=== PATIENT | female | born 1970 | race American Indian/Alaskan Native ===

== ENCOUNTER 2020-01-06 19:20 | Emergency (ER) | payer SELFPAY ==
[2020-01-06] MEDS ORDERED: KETOROLAC 30 MG/1 ML INJ IM ONE (20:52)
--- NOTE | 2020-01-06 20:56 | Emergency Department Report ---
ED Neck Pain/Injury HPI - General Chief Complaint: Neck Pain/Injury Stated Complaint: NECK/BACK SPASM PAIN Mode of arrival: Ambulatory Limitations: No Limitations - History of Present Illness Initial Comments: 49-year-old -Honduran female presents to the emergency room for left neck pain and muscle cramps since yesterday at about 1700. Patient states that the narcotics that she is taking is not helping. Patient reports she is tried using heat ice vjih-meq-gyymdjf lidocaine spray with no relief. Patient denies any injuries. Patient does report chronic neck pain with a herniated disc. Patient denies any diabetes no kidney disease. MD Complaint: neck pain Onset/Timin -: days(s) Radiation: left lateral Severity scale (0 -10): 10 Quality: stabbing, aching, other (Muscle cramp) Consistency: intermittent Improves With: none Worsens With: movement of neck, other (Lying on the left side) Associated Symptoms: none Treatments Prior to Arrival: cold therapy, heat therapy - Related Data Previous Rx's Medication Instructions Recorded Last Taken Type Ibuprofen [Motrin 800 MG tab] 800 mg PO Q8HR PRN #30 tablet 01/06/20 Unknown Rx tiZANidine [Zanaflex 4mg TAB] 4 mg PO Q6H PRN #30 tablet 01/06/20 Unknown Rx Allergies Allergy/AdvReac Type Severity Reaction Status Date / Time No Known Allergies Allergy Unverified 01/06/20 19:46 ED Review of Systems ROS: Stated complaint: NECK/BACK SPASM PAIN Other details as noted in HPI Comment: All other systems reviewed and negative ED Past Medical Hx - Past Medical History Previous Medical History?: Yes Hx Hypertension: Yes Additional medical history: Chronic Neck Pain. Chronic Back pain (Herniated disc). Morbid Obesity - Surgical History Past Surgical History?: Yes Additional Surgical History: - Social History Smoking Status: Never Smoker Substance Use Type: None - Medications Home Medications: Home Medications Medication Instructions Recorded Confirmed Last Taken Type Ibuprofen [Motrin 800 MG tab] 800 mg PO Q8HR PRN #30 tablet 01/06/20 Unknown Rx tiZANidine [Zanaflex 4mg TAB] 4 mg PO Q6H PRN #30 tablet 01/06/20 Unknown Rx ED Physical Exam - General Limitations: No Limitations General appearance: alert, in distress - Head Head exam: Present: atraumatic, normocephalic - Eye Eye exam: Present: normal appearance - ENT ENT exam: Present: mucous membranes moist - Neck Neck exam: Present: tenderness (Left side with trapezius tenderness) - Expanded Upper Extremity Exam Left Shoulder Exam: Present: full ROM, tenderness, tenderness over AC joint Upper Arm exam: Present: normal inspection, full ROM Elbow exam: Present: normal inspection, full ROM Forearm Wrist exam: Present: normal inspection, full ROM Hand Wrist exam: Present: normal inspection, full ROM Vascular: Present: vascular compromise - Neurological Exam Neurological exam: Present: alert, oriented X3 - Psychiatric Psychiatric exam: Present: normal affect, normal mood - Skin Skin exam: Present: warm, dry, intact, normal color. Absent: rash ED Course Vital Signs 01/06/20 19:49 Temperature 99.2 F Pulse Rate 88 Respiratory 18 Rate Blood Pressure 200/100 [Left] O2 Sat by Pulse 99 Oximetry ED Medical Decision Making - Medical Decision Making 49-year-old -Honduran female presents to the emergency room for left neck pain and muscle cramps since yesterday at about 1700. Patient states that the narcotics that she is taking is not helping. Patient reports she is tried using heat ice gybh-nnk-dopgvlh lidocaine spray with no relief. Patient denies any injuries. Patient does report chronic neck pain with a herniated disc. Patient denies any diabetes no kidney disease. Patient will be given a Toradol injection of 30 mg for pain management. I discussed with patient that I will try her on Zanaflex muscle relaxant and ibuprofen 800 mg every 6-8 hours as discussed the patient to be sure to drink and eat prior to taking medication. Patient verbalized understanding. Critical care attestation.: If time is entered above; I have spent that time in minutes in the direct care of this critically ill patient, excluding procedure time. ED Disposition Clinical Impression: Muscle spasms of neck, Chronic neck pain Disposition: TO HOME OR SELFCARE Is pt being admited?: No Does the pt Need Aspirin: No Condition: Stable Instructions: Cervical Radiculopathy (ED), Muscle Spasm (ED) Additional Instructions: Please take medications as prescribed. Please increase your water intake be sure to eat prior to taking medication. Follow-up with your primary care provider. I have also listed a neurologist that she can follow-up as well. Prescriptions: Ibuprofen [Motrin 800 MG tab] 800 mg PO Q8HR PRN #30 tablet PRN Reason: Pain , Severe (7-10) tiZANidine [Zanaflex 4mg TAB] 4 mg PO Q6H PRN #30 tablet PRN Reason: Muscle Spasm Referrals: PRIMARY CARE,MD [Primary Care Provider] - 3-5 Days CECILIA BAILEY II, MD [Staff Physician] - 3-5 Days
[2020-01-06 21:55] VITALS: BP 157/94
== END 2020-01-06 21:55 | disposition home or self-care (01) ==
LOC: ED 19:20
DX: M54.2 Cervicalgia (principal); M62.838 Other muscle spasm; G89.29 Other chronic pain; I10 Essential (primary) hypertension; E66.01 Morbid (severe) obesity due to excess calories; Z79.899 Other long term (current) drug therapy; Z98.890 Other specified postprocedural states; Z68.42 Body mass index [BMI] 45.0-49.9, adult
CPT/HCPCS: 96372; 99282; J1885

== ENCOUNTER 2021-01-06 08:11 | Observation (INO) | payer MEDICAID ==
[2021-01-06] MEDS ORDERED: amLODIPine 5 MG TAB PO ONE (09:34)
[2021-01-06] MEDS ORDERED: NITROGLYCERIN 0.4 MG TAB SUBL SL PRN (09:35)
--- NOTE | 2021-01-06 09:35 | Emergency Department Report ---
ED General Adult HPI - General Chief complaint: Dyspnea/Respdistress Stated complaint: SOB/ANXIETY PUI?: Yes Time Seen by Provider: 01/06/21 08:50 Source: patient, RN notes reviewed Mode of arrival: Ambulatory Limitations: No Limitations - History of Present Illness Initial comments: The patient was evaluated in the emergency department for symptoms described in the history of present illness. He/she was evaluated in the context of the global COVID-19 pandemic, which necessitated consideration that the patient might be at risk for infection with the virus that causes COVID-19. Institutional protocols and algorithms that pertain to the evaluation of patients at risk for COVID-19 are in a state of rapid change based on i nformation released by regulatory bodies including the CDC and federal and state organizations. These policies and algorithms were followed during the patient's care in the emergency department. Please note that these policies, procedures and recommendations changed on a rapid basis. The patient is a 50-year-old female. She is not known to myself previously. Her primary care doctor is in [facility]. Her past medical history includes hypertension, difficult to control, and she reports that she is currently on verapamil, metoprolol, and hydralazine. She is not vaccinated against COVID-19, and also has a past history of morbid obesity, with a BMI of 48. The patient presents to the ER today with complaint of shortness of breath, chest pressure, and anxiety. The patient has been having the symptoms for about 2 weeks. The chest pressure is central, and does not radiate to the back, arms or neck. The patient denies vomiting and diaphoresis. She denies travel, surgery, immobilization, leg pain and leg swelling, oral contraceptive use, , and DVT and pulmonary embolism risk factors. Shortness of breath and chest tightness or not exertional. The patient has never had a stress test. The patient endorses many symptoms of obstructive sleep apnea, including snoring at night, loud breathing at night, sensation and feeling of incomplete and unrestful sleep. She also reports that bed partner does report chronic snoring and apnea at night. The patient has not had a sleep study. The patient has not taken aspirin recently. She denies travel, surgery, immobilization, leg pain and leg swelling, and she denies tobacco use. There is no family history of ischemic heart disease, DVT, PE that she is aware of. The patient is not COVID-19 vaccinated. The patient reports a recent negative COVID-19 test. The patient denies known Covid exposure. -: Gradual, days(s) Location: chest Radiation: non-radiation Quality: aching Consistency: intermittent Improves with: none Worsens with: none - Related Data Home Medications Medication Instructions Recorded Confirmed Last Taken Metoprolol 01/06/21 Unknown Verapamil ER PM 01/06/21 Unknown Verapamil HCl [Verapamil] 40 mg PO DAILY 01/06/21 01/06/21 Unknown hydrALAZINE 10 mg PO DAILY 01/06/21 01/06/21 Unknown Previous Rx's Medication Instructions Recorded Last Taken Type Ibuprofen [Motrin 800 MG tab] 800 mg PO Q8HR PRN #30 tablet 01/06/20 Unknown Rx tiZANidine [Zanaflex 4mg TAB] 4 mg PO Q6H PRN #30 tablet 01/06/20 Unknown Rx Allergies Allergy/AdvReac Type Severity Reaction Status Date / Time No Known Allergies Allergy Verified 01/06/21 08:20 ED Review of Systems ROS: Stated complaint: SOB/ANXIETY Other details as noted in HPI Constitutional: malaise, weakness, other (Denies loss of taste and smell). denies: fever Eyes: denies: eye discharge ENT: denies: congestion Respiratory: orthopnea, shortness of breath, SOB with exertion, SOB at rest. denies: cough Cardiovascular: chest pain, dyspnea on exertion Gastrointestinal: denies: nausea, vomiting, hematemesis, melena, hematochezia Genitourinary: denies: dysuria Musculoskeletal: denies: back pain Neurological: weakness Psychiatric: anxiety ED Past Medical Hx - Past Medical History Hx Hypertension: Yes Additional medical history: Chronic Neck Pain. Chronic Back pain (Herniated disc). Morbid Obesity - Surgical History Additional Surgical History: - Social History Smoking Status: Never Smoker Substance Use Type: None - Medications Home Medications: Home Medications Medication Instructions Recorded Confirmed Last Taken Type Ibuprofen [Motrin 800 MG tab] 800 mg PO Q8HR PRN #30 tablet 01/06/20 Unknown Rx tiZANidine [Zanaflex 4mg TAB] 4 mg PO Q6H PRN #30 tablet 01/06/20 Unknown Rx Metoprolol 01/06/21 Unknown History Verapamil ER PM 01/06/21 Unknown History Verapamil HCl [Verapamil] 40 mg PO DAILY 01/06/21 01/06/21 Unknown History hydrALAZINE 10 mg PO DAILY 01/06/21 01/06/21 Unknown History ED Physical Exam - General Limitations: No Limitations General appearance: alert, anxious, in distress, obese - Head Head exam: Present: atraumatic, normocephalic - Eye Eye exam: Present: normal appearance, EOMI. Absent: nystagmus - ENT ENT exam: Present: normal exam, normal orophraynx, mucous membranes moist, normal external ear exam - Neck Neck exam: Present: normal inspection, full ROM. Absent: tenderness, meningismus - Respiratory Respiratory exam: Present: other (Pulmonary auscultation not performed secondary to lack of disposable stethoscope). Absent: stridor - Cardiovascular Cardiovascular Exam: Present: regular rate (Seen on EKG. Cardiac auscultation not performed secondary to lack of disposable stethoscope), normal rhythm - GI/Abdominal GI/Abdominal exam: Present: soft. Absent: distended, tenderness, guarding, rebound, rigid, pulsatile mass - Extremities Exam Extremities exam: Present: normal inspection, full ROM, other (2+ pulses noted in the bilateral upper and lower extremities. There is no palpable cord. negative Homans sign. Muscular compartments are soft. The pelvis is stable.). Absent: pedal edema, calf tenderness - Back Exam Back exam: Present: normal inspection. Absent: tenderness, CVA tenderness (R), CVA tenderness (L), paraspinal tenderness, vertebral tenderness - Neurological Exam Neurological exam: Present: alert, oriented X3, normal gait, other (No facial droop. Tongue midline. Extraocular movements intact bilaterally. Facial sensation intact to light touch in V1, V2, V3 distribution bilaterally. 5 and a 5 strength in 4 extremities. Sensation intact to light touch in 4 extremities.). Absent: motor sensory deficit - Psychiatric Psychiatric exam: Present: anxious - Skin Skin exam: Present: warm, dry, intact, normal color. Absent: rash ED Course Vital Signs 01/06/21 01/06/21 01/06/21 08:27 08:28 10:40 Temperature 98.9 F Pulse Rate 103 H 95 H Respiratory 20 Rate Blood Pressure 260/132 240/126 Blood Pressure [Left] O2 Sat by Pulse 95 Oximetry 01/06/21 01/06/21 01/06/21 10:41 10:48 12:52 Temperature Pulse Rate 88 88 Respiratory 19 Rate Blood Pressure 240/126 215/119 Blood Pressure [Left] O2 Sat by Pulse 96 98 Oximetry 01/06/21 01/06/21 01/06/21 12:54 13:01 13:15 Temperature Pulse Rate 104 H Respiratory 16 Rate Blood Pressure 203/101 204/102 Blood Pressure 203/101 [Left] O2 Sat by Pulse 97 98 99 Oximetry 01/06/21 01/06/21 01/06/21 13:26 13:31 13:57 Temperature Pulse Rate 105 H Respiratory Rate Blood Pressure 212/108 212/108 192/105 Blood Pressure [Left] O2 Sat by Pulse 98 98 Oximetry 01/06/21 01/06/21 01/06/21 14:01 14:15 14:25 Temperature Pulse Rate 134 H Respiratory 16 Rate Blood Pressure 192/105 192/105 Blood Pressure 192/105 [Left] O2 Sat by Pulse 99 98 99 Oximetry 01/06/21 14:26 Temperature Pulse Rate Respiratory 14 Rate Blood Pressure Blood Pressure [Left] O2 Sat by Pulse 99 Oximetry - Reevaluation(s) Reevaluation #1: 01/06/21 10:06 Differential diagnosis, including but not limited to: Hypertensive emergency, hypertensive cardiomyopathy, flash pulmonary edema, pneumonia, acute coronary syndrome, pulmonary embolism, anxiety, obstructive sleep apnea, COVID-19 01/06/21 10:06 Assessment and plan: 50-year-old female, with morbid obesity, probable undiagnosed obstructive sleep apnea, presenting with chest pressure, shortness of breath, anxiety, and marked hypertension. I suspect that the patient is experiencing this sequela of her uncontrolled hypertension, inadequately and incompletely managed and undiagnosed obstructive sleep apnea The patient is not hypoxic at this time, she denies loss of taste and smell. COVID-19 is less likely. We will treat her symptoms, obtain appropriate laboratory studies, x-ray of the chest, and reassess after initial data points the patient is not currently tachycardic, tachypneic or hypoxic. She denies DVT and pulmonary embolism risk factors, she is PERC negative, and low risk by Wells criteria. The patient is moderate risk for major adverse cardiac event as per heart score, so we have recommended admission to the medical service for blood pressure control, and cardiac risk ratification. I discussed this with the patient. She is agreeable to this plan of care. Reassess after acquisition of laboratory studies and x-ray the chest The patient has equal pulses in the upper and lower extremities. Her symptoms have been going on for a few weeks. I think aortic disease is therefore unlikely. The patient is not hypoxic, denies diarrhea, denies loss of taste and smell. I think COVID-19 is unlikely for that reason. 01/06/21 10:14 01/06/21 14:24 The patient is reevaluated multiple times. After multiple rounds of hydralazine, blood pressure is now 190 systolic. Patient very anxious about CT scan, I went back to her bedside, and discussed details and necessity of CT angiogram. She is in agreement with acquisition of CT scan. She felt much improved after midazolam. Hospital physician, Dr. Jaqui Syed to admit to IMS 01/06/21 15:45 CT scan chest negative for acute findings. Cardiomegaly noted. This is likely secondary to hypertension and presumed obstructive sleep apnea. ED Medical Decision Making - Lab Data Result diagrams: 01/06/21 09:51 01/06/21 09:51 Vital Signs 01/06/21 01/06/21 08:27 08:28 Temperature 98.9 F Pulse Rate 103 H Respiratory 20 Rate Blood Pressure 260/132 O2 Sat by Pulse 95 Oximetry Lab Results 01/06/21 01/06/21 01/06/21 Range/Units 09:51 09:51 09:51 WBC 8.6 (4.5-11.0) K/mm3 RBC 4.21 (3.65-5.03) M/mm3 Hgb 12.1 (10.1-14.3) gm/dl Hct 34.8 (30.3-42.9) % MCV 83 (79-97) fl MCH 29 (28-32) pg MCHC 35 H (30-34) % RDW 16.8 H (13.2-15.2) % Plt Count 244 (140-440) K/mm3 Lymph % (Auto) 29.2 (13.4-35.0) % Lamar % (Auto) 8.1 H (0.0-7.3) % Eos % (Auto) 0.3 (0.0-4.3) % Baso % (Auto) 0.5 (0.0-1.8) % Lymph # (Auto) 2.5 (1.2-5.4) K/mm3 Lamar # (Auto) 0.7 (0.0-0.8) K/mm3 Eos # (Auto) 0.0 (0.0-0.4) K/mm3 Baso # (Auto) 0.0 (0.0-0.1) K/mm3 Seg Neutrophils % 61.9 (40.0-70.0) % Seg Neutrophils # 5.3 (1.8-7.7) K/mm3 PT 14.2 (12.2-14.9) Sec. INR 1.05 (0.87-1.13) APTT 29.3 (24.2-36.6) Sec. D-Dimer 1439.13 H (0-234) ng/mlDDU Sodium 141 (137-145) mmol/L Potassium 4.1 (3.6-5.0) mmol/L Chloride 103.1 (98-107) mmol/L Carbon Dioxide 24 (22-30) mmol/L Anion Gap 18 mmol/L BUN 8 (7-17) mg/dL Creatinine 1.1 (0.6-1.2) mg/dL Estimated GFR > 60 ml/min BUN/Creatinine Ratio 7 % Glucose 106 H (65-100) mg/dL Calcium 8.9 (8.4-10.2) mg/dL Magnesium 1.70 (1.7-2.3) mg/dL Total Bilirubin 0.40 (0.1-1.2) mg/dL AST 18 (5-40) units/L ALT 11 (7-56) units/L Alkaline Phosphatase 78 (35-129) units/L Total Creatine Kinase 145 H (30-135) units/L Troponin T < 0.010 (0.00-0.029) ng/mL NT-Pro-B Natriuret Pep 379.4 (0-450) pg/mL Total Protein 8.0 (6.3-8.2) g/dL Albumin 3.7 L (3.9-5) g/dL Albumin/Globulin Ratio 0.9 % TSH (0.270-4.200) mlU/mL HCG, Quant (0-4) mIU/mL 01/06/21 01/06/21 Range/Units 09:51 09:51 WBC (4.5-11.0) K/mm3 RBC (3.65-5.03) M/mm3 Hgb (10.1-14.3) gm/dl Hct (30.3-42.9) % MCV (79-97) fl MCH (28-32) pg MCHC (30-34) % RDW (13.2-15.2) % Plt Count (140-440) K/mm3 Lymph % (Auto) (13.4-35.0) % Lamar % (Auto) (0.0-7.3) % Eos % (Auto) (0.0-4.3) % Baso % (Auto) (0.0-1.8) % Lymph # (Auto) (1.2-5.4) K/mm3 Lamar # (Auto) (0.0-0.8) K/mm3 Eos # (Auto) (0.0-0.4) K/mm3 Baso # (Auto) (0.0-0.1) K/mm3 Seg Neutrophils % (40.0-70.0) % Seg Neutrophils # (1.8-7.7) K/mm3 PT (12.2-14.9) Sec. INR (0.87-1.13) APTT (24.2-36.6) Sec. D-Dimer (0-234) ng/mlDDU Sodium (137-145) mmol/L Potassium (3.6-5.0) mmol/L Chloride (98-107) mmol/L Carbon Dioxide (22-30) mmol/L Anion Gap mmol/L BUN (7-17) mg/dL Creatinine (0.6-1.2) mg/dL Estimated GFR ml/min BUN/Creatinine Ratio % Glucose (65-100) mg/dL Calcium (8.4-10.2) mg/dL Magnesium (1.7-2.3) mg/dL Total Bilirubin (0.1-1.2) mg/dL AST (5-40) units/L ALT (7-56) units/L Alkaline Phosphatase (35-129) units/L Total Creatine Kinase (30-135) units/L Troponin T (0.00-0.029) ng/mL NT-Pro-B Natriuret Pep (0-450) pg/mL Total Protein (6.3-8.2) g/dL Albumin (3.9-5) g/dL Albumin/Globulin Ratio % TSH 2.090 (0.270-4.200) mlU/mL HCG, Quant < 2 (0-4) mIU/mL Vital Signs 01/06/21 01/06/21 01/06/21 08:27 08:28 10:40 Temperature 98.9 F Pulse Rate 103 H 95 H Respiratory 20 Rate Blood Pressure 260/132 240/126 O2 Sat by Pulse 95 Oximetry 01/06/21 01/06/21 10:41 10:48 Temperature Pulse Rate 88 88 Respiratory 19 Rate Blood Pressure 240/126 215/119 O2 Sat by Pulse 96 Oximetry - EKG Data -: EKG Interpreted by Dc EKG shows normal: sinus rhythm Rate: normal - EKG Data 01/06/21 10:10 EKG #1 is interpreted at 08: 43 Sinus rhythm, 78 bpm. Borderline leftward axis deviation, motion artifact, atrial enlargement, poor R wave progression, high left ventricular voltage. This is an abnormal EKG. This is not a STEMI. No priors available for comparison - Radiology Data Radiology results: pending, report reviewed, image reviewed CHEST 1 VIEW 01/06/2021 11:31 AM INDICATION / CLINICAL INFORMATION: Chest pain and dyspnea. COMPARISON: None available. FINDINGS: SUPPORT DEVICES: None. HEART / MEDIASTINUM: There is borderline cardiomegaly with a left ventricular configuration. Pulmonary vasculature is normal. There is mild aortic tortuosity without aneurysm. LUNGS / PLEURA: No significant pulmonary or pleural abnormality. No pneumothorax. ADDITIONAL FINDINGS: No significant additional findings. IMPRESSION: Borderline cardiomegaly. No acute pulmonary disease. Signer Name: Rory Maier MD Signed: 01/06/2021 10:35 AM Workstation Name: [facility]ENTERMont[facility] [place] [address] Cat Scan Report Signed Patient: RADHA BROWN MR#: [id number] : 1970 Acct:[id number] Age/Sex: 50 / F ADM Date: 01/06/21 Loc: 3A [id number]: JOSE SYED MD Ordering Physician: JARED COLLINS MD Date of Service: 01/06/21 Procedure(s): CT angio chest Accession Number(s): [id number] cc: JARED COLLINS MD CTA CHEST WITH CONTRAST INDICATION / CLINICAL INFORMATION: cp, dyspnea, htn, pe protocol. TECHNIQUE: Axial CT images were obtained through the chest after injection of IV contrast. 3 plane MIP and/or 3D reconstructions were produced. All CT scans at this location are performed using CT dose reduc tion for ALARA by means of automated exposure control. COMPARISON: None available. FINDINGS: PULMONARY ARTERIES: No pulmonary emboli. THORACIC AORTA: No significant abnormality. HEART: Enlarged CORONARY ARTERY CALCIFICATION: None. MEDIASTINUM / GURPREET: No significant abnormality. PLEURA: No pleural effusion. No pneumothorax. LUNGS: No acute air space or interstitial disease. ADDITIONAL FINDINGS: None. UPPER ABDOMEN: No acute findings. SKELETAL STRUCTURES: No significant osseous abnormality. IMPRESSION: 1. No CT evidence for pulmonary embolism. 2. Cardiomegaly without acute findings. Signer Name: Eric Lockett MD Signed: 01/06/2021 2:59 PM Workstation Name: [id number] Transcribed By: SB Dictated By: ERIC LOCKETT MD Electronically Authenticated By: ERIC LOCKETT MD Signed Date/Time: 01/06/211458 DD/ 54 TD/TT: Critical care attestation.: If time is entered above; I have spent that time in minutes in the direct care of this critically ill patient, excluding procedure time. ED Disposition Clinical Impression: Dyspnea, Acute chest pain, Hypertensive urgency, Morbid obesity, COVID-19 vaccine dose declined, Cardiomegaly Disposition: ADMITTED INPATIENT Is pt being admited?: Yes Does the pt Need Aspirin: Yes Condition: Good Heart Score - HEART Score History: Moderately suspicious EKG: Non-specific Age: 45-65 Risk factors: > 3 risk factors or hx of atherosclerotic disease Troponin: < normal limit HEART Score: 5 - EKG Read Time Time EKG Completed: 08:43 EKG Read Time: 08:43 - Critical Actions Critical Actions: 4-6 pts:12-16.6% risk of adverse cardiac event. Should be admitted
[2021-01-06] MEDS ORDERED: hydrALAZINE 20 MG/1 ML INJ IV ONE ×2 (10:09→12:19)
[2021-01-06 10:38] LABS: Basophils % (Auto) 0.5 % (0.0-1.8); Eosinophils % (Auto) 0.3 % (0.0-4.3); Hematocrit 34.8 % (30.3-42.9); Hemoglobin 12.1 gm/dl (10.1-14.3); Lymphocytes # (Auto) 2.5 K/mm3 (1.2-5.4); Lymphocytes % (Auto) 29.2 % (13.4-35.0); Mean Corpuscular HGB Conc 35 % (30-34); Mean Corpuscular Volume 83 fl (79-97); Monocytes # (Auto) 0.7 K/mm3 (0.0-0.8); Monocytes % (Auto) 8.1 % (0.0-7.3); Platelet Count 244 K/mm3 (140-440); Red Blood Count 4.21 M/mm3 (3.65-5.03); Red Cell Distribution Width 16.8 % (13.2-15.2)
[2021-01-06 10:46] LABS: INR 1.05 (0.87-1.13)
[2021-01-06 10:47] LABS: Partial Thromboplastin Time 29.3 Sec. (24.2-36.6)
[2021-01-06 10:58] LABS: Alanine Aminotransferase 11 units/L (7-56); Albumin 3.7 g/dL (3.9-5); BUN/Creatinine Ratio 7; Blood Urea Nitrogen 8 mg/dL (7-17); Calcium 8.9 mg/dL (8.4-10.2); Hemolysis Index 27
--- NOTE | 2021-01-06 11:39 | XRay Report ---
CHEST 1 VIEW 01/06/2021 11:31 AM INDICATION / CLINICAL INFORMATION: Chest pain and dyspnea. COMPARISON: None available. FINDINGS: SUPPORT DEVICES: None. HEART / MEDIASTINUM: There is borderline cardiomegaly with a left ventricular configuration. Pulmonar y vasculature is normal. There is mild aortic tortuosity without aneurysm. LUNGS / PLEURA: No significant pulmonary or pleural abnormality. No pneumothorax. ADDITIONAL FINDINGS: No significant additional findings. IMPRESSION: Borderline cardiomegaly. No acute pulmonary disease. Signer Name: Rory Maier MD Signed: 01/06/2021 11:35 AM Workstation Name: [email or web address]
[2021-01-06] MEDS ORDERED: MIDAZOLAM 2 MG/2 ML INJ IV ONE (13:32)
[2021-01-06] MEDS ORDERED: MIDAZOLAM 5 MG/5 ML INJ MDV IV ONE (14:00)
[2021-01-06] MEDS ORDERED: ASPIRIN 81 MG TAB CHEW PO ONE (14:25)
--- NOTE | 2021-01-06 15:04 | Cat Scan Report ---
CTA CHEST WITH CONTRAST INDICATION / CLINICAL INFORMATION: cp, dyspnea, htn, pe protocol. TECHNIQUE: Axial CT images were obtained through the chest after injection of IV contrast. 3 plane DC P and/or 3D reconstructions were produced. All CT scans at this location are performed using CT dose reduction for ALARA by means of automated exposure control. COMPARISON: None available. FINDINGS: PULMONARY ARTERIES: No pulmonary emboli. THORACIC AORTA: No significant abnormality. HEART: Enlarged CORONARY ARTERY CALCIFICATION: None. MEDIASTINUM / GURPREET: No significant abnormality. PLEURA: No pleural effusion. No pneumothorax. LUNGS: No acute air space or interstitial disease. ADDITIONAL FINDINGS: None. UPPER ABDOMEN: No acute findings. SKELETAL STRUCTURES: No significant osseous abnormality. IMPRESSION: 1. No CT evidence for pulmonary embolism. 2. Cardiomegaly without acute findings. Signer Name: Eric Lockett MD Signed: 01/06/2021 2:59 PM Workstation Name: [id number]
[2021-01-06] MEDS ORDERED: NON-FORMULARY EACH (Metoprolol 50 MG) PO SCH (16:16)
[2021-01-06] MEDS ORDERED: NON-FORMULARY EACH (Hydralazine 50 MG) PO SCH (16:16)
[2021-01-06] MEDS ORDERED: hydrALAZINE 20 MG/1 ML INJ IV NR (16:19)
[2021-01-06] MEDS ORDERED: VERAPAMIL 240 MG PO SCH (16:30)
[2021-01-06] MEDS: BUTALB/ACETAMINOPHEN/CAFFEINE TAB PO PRN ×2 (16:55→21:54)
[2021-01-06] MEDS ORDERED: tiZANidine TAB 4 MG TAB PO PRN (17:00)
[2021-01-06] MEDS: hydrALAZINE 20 MG/1 ML INJ IV PRN (17:07)
[2021-01-06] MEDS: hydrALAZINE 25 MG TAB PO SCH (19:46)
[2021-01-06] MEDS ORDERED: ZOLPIDEM 5 MG TAB PO PRN (21:08)
[2021-01-06] MEDS: METOPROLOL TARTRATE 50 MG TAB PO SCH (21:54)
[2021-01-06] MEDS: VERAPAMIL ER 240 MG TAB PO SCH (22:42)
[2021-01-06] MEDS ORDERED: LORazepam 0.5 MG TAB PO ONE (23:00)
[2021-01-07] MEDS: hydrALAZINE 25 MG TAB PO SCH ×3 (01:01→17:50)
[2021-01-07] MEDS: hydrALAZINE 20 MG/1 ML INJ IV PRN (05:57)
--- NOTE | 2021-01-07 06:52 | History and Physical Report ---
History of Present Illness Date of examination: 01/06/21 Date of admission: 01/06/21 14:25 Chief complaint: Shortness of breath, chest pressure and anxiety for 1 day History of present illness: 50-year-old female with history of hypertension comes in for chest pressure and shortness of breath and anxiety. Patient has been having the symptoms for 2 weeks but more so for the last 24 hours. Chest pain is retrosternal and does not radiate to the back left upper extremity. Localized. No nausea. No diaphoresis. Some shortness of breath present. Also patient anxious. Patient also has obstructive sleep apnea. In the emergency room her blood pressure is very high at 260/150. Which is brought on by IV hydralazine and oral medications to some extent. Patient states that she is compliant with her antihypertensives. Patient is not COVID-19 vaccinated. Reports a recent negative COVID-19 test. Denies Covid exposure. - Past Medical History --Hypertension: Yes --Additional medical history: Chronic Neck Pain. Chronic Back pain (Herniated disc). Morbid Obesity - Surgical History Additional Surgical History: - Social History Smoking Status: Never Smoker Substance Use Type: None -Family history --Htn - Medications Home Medications: Home Medications Medication Instructions Recorded Confirmed Last Taken Type Ibuprofen [Motrin 800 MG tab] 800 mg PO Q8HR PRN #30 tablet 01/06/20 Unknown Rx tiZANidine [Zanaflex 4mg TAB] 4 mg PO Q6H PRN #30 tablet 01/06/20 Unknown Rx Metoprolol 01/06/21 Unknown History Verapamil ER PM 01/06/21 Unknown History Verapamil HCl [Verapamil] 40 mg PO DAILY 01/06/21 01/06/21 Unknown History hydrALAZINE 10 mg PO DAILY 01/06/21 01/06/21 Unknown History Review of Systems ROS: Stated complaint: SOB/ANXIETY Other details as noted in HPI Constitutional: malaise, weakness, other (Denies loss of taste and smell). denies: fever Eyes: denies: eye discharge ENT: denies: congestion Respiratory: orthopnea, shortness of breath, SOB with exertion, SOB at rest. denies: cough Cardiovascular: chest pain, dyspnea on exertion Gastrointestinal: denies: nausea, vomiting, hematemesis, melena, hematochezia Genitourinary: denies: dysuria Musculoskeletal: denies: back pain Neurological: weakness Psychiatric: anxiety Medications and Allergies Allergies Allergy/AdvReac Type Severity Reaction Status Date / Time No Known Allergies Allergy Verified 01/06/21 08:20 Home Medications Medication Instructions Recorded Confirmed Last Taken Type Ibuprofen [Motrin 800 MG tab] 800 mg PO Q8HR PRN #30 tablet 01/06/20 Unknown Rx tiZANidine [Zanaflex 4mg TAB] 4 mg PO Q6H PRN #30 tablet 01/06/20 Unknown Rx Metoprolol 01/06/21 Unknown History Verapamil ER PM 01/06/21 Unknown History Verapamil HCl [Verapamil] 40 mg PO DAILY 01/06/21 01/06/21 Unknown History hydrALAZINE 10 mg PO DAILY 01/06/21 01/06/21 Unknown History Active Meds: Active Medications Acetaminophen/Butalbital/Caffeine (Butalb/Acetaminophen/Caffeine Tab) 1 tab PO Q4H PRN PRN Reason: Headache Last Admin: 01/06/21 21:54 Dose: 1 tab Documented by: Hydralazine HCl (Hydralazine 20 Mg/1 Ml Inj) 10 mg IV Q3H PRN PRN Reason: Blood Pressure Last Admin: 01/07/21 05:57 Dose: 10 mg Documented by: Hydralazine HCl (Hydralazine 25 Mg Tab) 50 mg PO Q8H [facility] Last Admin: 01/07/21 01:01 Dose: 50 mg Documented by: Metoprolol Tartrate (Metoprolol Tartrate 50 Mg Tab) 50 mg PO BID [facility] Last Admin: 01/06/21 21:54 Dose: 50 mg Documented by: Nitroglycerin (Nitroglycerin 0.4 Mg Tab Subl) 0.4 mg SL .Q5MIN PRN PRN Reason: Chest Pain Last Admin: 01/06/21 10:40 Dose: 0.4 mg Documented by: Tizanidine HCl (Tizanidine Tab 4 Mg Tab) 4 mg PO Q6H PRN PRN Reason: Muscle Spasm Verapamil HCl (Verapamil Er 240 Mg Tab) 240 mg PO Q24H [facility] Last Admin: 01/06/21 22:42 Dose: 240 mg Documented by: Zolpidem Tartrate (Zolpidem 5 Mg Tab) 10 mg PO QHS PRN PRN Reason: Sleep Last Admin: 01/06/21 21:55 Dose: 10 mg Documented by: Exam - Constitutional Vitals: Temp Pulse Resp BP Pulse Ox 98.8 F 81 20 180/102 94 01/07/21 05:22 01/07/21 05:22 01/07/21 05:22 01/07/21 05:22 01/07/21 05:22 General appearance: Present: no acute distress, well-nourished - EENT Eyes: Present: PERRL ENT: hearing intact, clear oral mucosa - Neck Neck: Present: supple, normal ROM - Respiratory Respiratory effort: normal Respiratory: bilateral: CTA - Cardiovascular Heart rate: 78 Rhythm: regular Heart Sounds: Present: S1 & S2. Absent: rub, click - Extremities Extremities: pulses symmetrical, No edema Peripheral Pulses: within normal limits - Abdominal General gastrointestinal: Present: soft, non-tender, non-distended, normal bowel sounds Female genitourinary: Present: normal - Integumentary Integumentary: Present: clear, warm, dry - Musculoskeletal Musculoskeletal: gait normal, strength equal bilaterally - Psychiatric Psychiatric: appropriate mood/affect, intact judgment & insight - Neurologic Neurologic: CNII-XII intact, moves all extremities - Allied Health Allied health notes reviewed: nursing, case management HEART Score - HEART Score EKG: Non-specific Age: 45-65 Risk factors: > 3 risk factors or hx of atherosclerotic disease Troponin: Troponin T < 0.010 ng/mL (0.00-0.029) 01/06/21 09:51 Troponin: < normal limit - Critical Actions Critical Actions: 4-6 pts:12-16.6% risk of adverse cardiac event. Should be admitted Results - Labs CBC & Chem 7: 01/06/21 09:51 01/06/21 09:51 Labs: Laboratory Last Values WBC 8.6 K/mm3 (4.5-11.0) 01/06/21 09:51 RBC 4.21 M/mm3 (3.65-5.03) 01/06/21 09:51 Hgb 12.1 gm/dl (10.1-14.3) 01/06/21 09:51 Hct 34.8 % (30.3-42.9) 01/06/21 09:51 MCV 83 fl (79-97) 01/06/21 09:51 MCH 29 pg (28-32) 01/06/21 09:51 MCHC 35 % (30-34) H 01/06/21 09:51 RDW 16.8 % (13.2-15.2) H 01/06/21 09:51 Plt Count 244 K/mm3 (140-440) 01/06/21 09:51 Lymph % (Auto) 29.2 % (13.4-35.0) 01/06/21 09:51 [place] % (Auto) 8.1 % (0.0-7.3) H 01/06/21 09:51 Eos % (Auto) 0.3 % (0.0-4.3) 01/06/21 09:51 Baso % (Auto) 0.5 % (0.0-1.8) 01/06/21 09:51 Lymph # (Auto) 2.5 K/mm3 (1.2-5.4) 01/06/21 09:51 [place] # (Auto) 0.7 K/mm3 (0.0-0.8) 01/06/21 09:51 Eos # (Auto) 0.0 K/mm3 (0.0-0.4) 01/06/21 09:51 Baso # (Auto) 0.0 K/mm3 (0.0-0.1) 01/06/21 09:51 Seg Neutrophils % 61.9 % (40.0-70.0) 01/06/21 09:51 Seg Neutrophils # 5.3 K/mm3 (1.8-7.7) 01/06/21 09:51 PT 14.2 Sec. (12.2-14.9) 01/06/21 09:51 INR 1.05 (0.87-1.13) 01/06/21 09:51 APTT 29.3 Sec. (24.2-36.6) 01/06/21 09:51 D-Dimer 1439.13 ng/mlDDU (0-234) H 01/06/21 09:51 Sodium 141 mmol/L (137-145) 01/06/21 09:51 Potassium 4.1 mmol/L (3.6-5.0) 01/06/21 09:51 Chloride 103.1 mmol/L (98-107) 01/06/21 09:51 Carbon Dioxide 24 mmol/L (22-30) 01/06/21 09:51 Anion Gap 18 mmol/L 01/06/21 09:51 BUN 8 mg/dL (7-17) 01/06/21 09:51 Creatinine 1.1 mg/dL (0.6-1.2) 01/06/21 09:51 Estimated GFR > 60 ml/min 01/06/21 09:51 BUN/Creatinine Ratio 7 % 01/06/21 09:51 Glucose 106 mg/dL (65-100) H 01/06/21 09:51 Calcium 8.9 mg/dL (8.4-10.2) 01/06/21 09:51 Magnesium 1.70 mg/dL (1.7-2.3) 01/06/21 09:51 Total Bilirubin 0.40 mg/dL (0.1-1.2) 01/06/21 09:51 AST 18 units/L (5-40) 01/06/21 09:51 ALT 11 units/L (7-56) 01/06/21 09:51 Alkaline Phosphatase 78 units/L (35-129) 01/06/21 09:51 Total Creatine Kinase 145 units/L (30-135) H 01/06/21 09:51 Troponin T < 0.010 ng/mL (0.00-0.029) 01/06/21 09:51 NT-Pro-B Natriuret Pep 379.4 pg/mL (0-450) 01/06/21 09:51 Total Protein 8.0 g/dL (6.3-8.2) 01/06/21 09:51 Albumin 3.7 g/dL (3.9-5) L 01/06/21 09:51 Albumin/Globulin Ratio 0.9 % 01/06/21 09:51 TSH 2.090 mlU/mL (0.270-4.200) 01/06/21 09:51 HCG, Quant < 2 mIU/mL (0-4) 01/06/21 09:51 Short CBC 01/06/21 Range/Units 09:51 WBC 8.6 (4.5-11.0) K/mm3 Hgb 12.1 (10.1-14.3) gm/dl Hct 34.8 (30.3-42.9) % Plt Count 244 (140-440) K/mm3 BMP 01/06/21 09:51 Sodium 141 Potassium 4.1 Chloride 103.1 Carbon Dioxide 24 BUN 8 Creatinine 1.1 Glucose 106 H Calcium 8.9 Cardiac Enzymes 01/06/21 Range/Units 09:51 Total Creatine Kinase 145 H (30-135) units/L Troponin T < 0.010 (0.00-0.029) ng/mL Liver Function 01/06/21 Range/Units 09:51 Total Bilirubin 0.40 (0.1-1.2) mg/dL AST 18 (5-40) units/L ALT 11 (7-56) units/L Alkaline Phosphatase 78 (35-129) units/L Albumin 3.7 L (3.9-5) g/dL - Imaging and Cardiology EKG: report reviewed (No acute ST-T wave changes, normal sinus rhythm) Imaging and Cardiology: Chest x-ray Cardiomegaly No acute pulmonary disease Chest CTA No CT evidence for pulmonary embolism Cardiomegaly without acute findings Nettles/IV: Voiding Method Toilet Assessment and Plan Advance Directives: Yes (Full code) VTE prophylaxis?: Chemical Plan of care discussed with patient/family: Yes - Patient Problems (1) Hypertensive emergency Current Visit: Yes Status: Acute Plan to address problem: Patient initiated on hydralazine 50 every 8, verapamil xr 240 once a day and metoprolol IV hydralazine every 3 hours as needed Valsartan to be added if necessary Blood pressure has come down to the emergency room hence Cardene drip was not started (2) Acute chest pain Current Visit: Yes Status: Acute Plan to address problem: Serial troponins and Lexiscan in the morning (3) DARRON (obstructive sleep apnea) Current Visit: Yes Status: Chronic Plan to address problem: Respiratory assessment for CPAP (4) Morbid obesity with BMI of 45.0-49.9, adult Current Visit: Yes Status: Chronic Plan to address problem: Patient to follow-up with bariatric surgery as outpatient Patient to be referred to Dr. Ferguson at the time of discharge and to be counseled about obesity (5) DVT prophylaxis Current Visit: Yes Status: Acute Plan to address problem: On anticoagulation and GI prophylaxis
--- NOTE | 2021-01-07 09:37 | Progress Note ---
Assessment and Plan Assessment and plan: --PUI/high suspicion for COVID-19 infection Current Visit: Yes Status: Acute Contact and droplet isolation Follow ocok PCR test Inflammatory markers, ID consult if needed -- Hypertensive emergency Current Visit: Yes Status: Acute Plan to address problem: Patient initiated on hydralazine 50 every 8, verapamil xr 240 once a day and metoprolol IV hydralazine every 3 hours as needed Valsartan to be added if necessary Blood pressure has come down to the emergency room hence Cardene drip was not started --Acute chest pain Current Visit: Yes Status: Acute Plan to address problem: Serial troponins and Lexiscan in the morning -- DARRON (obstructive sleep apnea) Current Visit: Yes Status: Chronic Plan to address problem: Respiratory assessment for CPAP --Morbid obesity with BMI of 45.0-49.9, adult Current Visit: Yes Status: Chronic Plan to address problem: Patient to follow-up with bariatric surgery as outpatient Patient to be referred to Dr. Ferguson at the time of discharge and to be counseled about obesity -- DVT prophylaxis Current Visit: Yes Status: Acute Plan to address problem: On anticoagulation and GI prophylaxis Hospitalist Physical - Constitutional Vitals: Temp Pulse Resp BP Pulse Ox 98.8 F 81 20 180/102 94 01/07/21 05:22 01/07/21 05:22 01/07/21 05:22 01/07/21 05:22 01/07/21 05:22 General appearance: Present: no acute distress, well-nourished HEART Score - HEART Score EKG: Non-specific Age: 45-65 Risk factors: > 3 risk factors or hx of atherosclerotic disease Troponin: Troponin T < 0.010 ng/mL (0.00-0.029) 01/07/21 08:10 Troponin: < normal limit - Critical Actions Critical Actions: 4-6 pts:12-16.6% risk of adverse cardiac event. Should be admitted Results - Labs CBC & Chem 7: 01/06/21 09:51 01/06/21 09:51 Labs: Laboratory Last Values WBC 8.6 K/mm3 (4.5-11.0) 01/06/21 09:51 RBC 4.21 M/mm3 (3.65-5.03) 01/06/21 09:51 Hgb 12.1 gm/dl (10.1-14.3) 01/06/21 09:51 Hct 34.8 % (30.3-42.9) 01/06/21 09:51 MCV 83 fl (79-97) 01/06/21 09:51 MCH 29 pg (28-32) 01/06/21 09:51 MCHC 35 % (30-34) H 01/06/21 09:51 RDW 16.8 % (13.2-15.2) H 01/06/21 09:51 Plt Count 244 K/mm3 (140-440) 01/06/21 09:51 Lymph % (Auto) 29.2 % (13.4-35.0) 01/06/21 09:51 [place] % (Auto) 8.1 % (0.0-7.3) H 01/06/21 09:51 Eos % (Auto) 0.3 % (0.0-4.3) 01/06/21 09:51 Baso % (Auto) 0.5 % (0.0-1.8) 01/06/21 09:51 Lymph # (Auto) 2.5 K/mm3 (1.2-5.4) 01/06/21 09:51 [place] # (Auto) 0.7 K/mm3 (0.0-0.8) 01/06/21 09:51 Eos # (Auto) 0.0 K/mm3 (0.0-0.4) 01/06/21 09:51 Baso # (Auto) 0.0 K/mm3 (0.0-0.1) 01/06/21 09:51 Seg Neutrophils % 61.9 % (40.0-70.0) 01/06/21 09:51 Seg Neutrophils # 5.3 K/mm3 (1.8-7.7) 01/06/21 09:51 PT 14.2 Sec. (12.2-14.9) 01/06/21 09:51 INR 1.05 (0.87-1.13) 01/06/21 09:51 APTT 29.3 Sec. (24.2-36.6) 01/06/21 09:51 D-Dimer 1439.13 ng/mlDDU (0-234) H 01/06/21 09:51 Sodium 141 mmol/L (137-145) 01/06/21 09:51 Potassium 4.1 mmol/L (3.6-5.0) 01/06/21 09:51 Chloride 103.1 mmol/L (98-107) 01/06/21 09:51 Carbon Dioxide 24 mmol/L (22-30) 01/06/21 09:51 Anion Gap 18 mmol/L 01/06/21 09:51 BUN 8 mg/dL (7-17) 01/06/21 09:51 Creatinine 1.1 mg/dL (0.6-1.2) 01/06/21 09:51 Estimated GFR > 60 ml/min 01/06/21 09:51 BUN/Creatinine Ratio 7 % 01/06/21 09:51 Glucose 106 mg/dL (65-100) H 01/06/21 09:51 Calcium 8.9 mg/dL (8.4-10.2) 01/06/21 09:51 Magnesium 1.70 mg/dL (1.7-2.3) 01/06/21 09:51 Total Bilirubin 0.40 mg/dL (0.1-1.2) 01/06/21 09:51 AST 18 units/L (5-40) 01/06/21 09:51 ALT 11 units/L (7-56) 01/06/21 09:51 Alkaline Phosphatase 78 units/L (35-129) 01/06/21 09:51 Total Creatine Kinase 145 units/L (30-135) H 01/06/21 09:51 Troponin T < 0.010 ng/mL (0.00-0.029) 01/07/21 08:10 NT-Pro-B Natriuret Pep 379.4 pg/mL (0-450) 01/06/21 09:51 Total Protein 8.0 g/dL (6.3-8.2) 01/06/21 09:51 Albumin 3.7 g/dL (3.9-5) L 01/06/21 09:51 Albumin/Globulin Ratio 0.9 % 01/06/21 09:51 TSH 2.090 mlU/mL (0.270-4.200) 01/06/21 09:51 HCG, Quant < 2 mIU/mL (0-4) 01/06/21 09:51 Nettles/IV: Voiding Method Toilet Active Medications - Current Medications Current Medications: Generic Name Dose Route Start Last Admin Trade Name Freq PRN Reason Stop Dose Admin Acetaminophen/Butalbital/Caffeine 1 tab 01/06/21 17:00 01/06/21 21:54 Butalb/Acetaminophen/Caffeine Tab PO 1 tab Q4H PRN Administration Headache Hydralazine HCl 10 mg 01/06/21 18:20 01/07/21 05:57 Hydralazine 20 Mg/1 Ml Inj IV 10 mg Q3H PRN Administration Blood Pressure Hydralazine HCl 50 mg 01/06/21 18:00 01/07/21 01:01 Hydralazine 25 Mg Tab PO 50 mg Q8H YUDELKA Administration Metoprolol Tartrate 50 mg 01/06/21 22:00 01/06/21 21:54 Metoprolol Tartrate 50 Mg Tab PO 50 mg BID YUDELKA Administration Nitroglycerin 0.4 mg 01/06/21 09:35 01/06/21 10:40 Nitroglycerin 0.4 Mg Tab Subl SL 0.4 mg .Q5MIN PRN Administration Chest Pain Tizanidine HCl 4 mg 01/06/21 17:00 Tizanidine Tab 4 Mg Tab PO Q6H PRN Muscle Spasm Verapamil HCl 240 mg 01/06/21 20:00 01/06/21 22:42 Verapamil Er 240 Mg Tab PO 240 mg Q24H YUDELKA Administration Zolpidem Tartrate 10 mg 01/06/21 21:08 01/06/21 21:55 Zolpidem 5 Mg Tab PO 10 mg QHS PRN Administration Sleep
[2021-01-07] MEDS: METOPROLOL TARTRATE 50 MG TAB PO SCH ×2 (09:38→21:31)
--- NOTE | 2021-01-07 16:22 | Progress Note ---
Assessment and Plan Assessment and plan: #Hypertensive urgency -No use of Cardene drip in ED -Patient initiated on p.o. hydralazine 50 mg every 8 hours, verapamil 240 mg once daily and metoprolol tartrate 50 mg twice daily -IV hydralazine added as needed for SBP greater than 160 -Cardiology consulted; appreciate recommendations -Pending stress test in a.m. N.p.o. at midnight -Possibility of anxiety being additional factor and elevated blood pressure #Acute chest painresolved -Negative troponin x3 -Pending stress test in a.m. #Possible obstructive sleep apnea -We will follow up in outpatient with a sleep study #Morbid obesity -BMI 48 -Counseled about dietary habits, exercise, weight loss, and overall lifestyle changes. Patient expressed understanding -Patient will follow up with bariatric surgery as outpatient. Referred to Dr. Ferguson to be counseled about obesity. -Time: +15 minutes #DVT prophylaxis -Continue current anticoagulation Disposition Plan: Continue medical management Total Time Spent with Patient (Minutes): 40 History Interval history: No acute events overnight. Hospitalist Physical - Constitutional Vitals: Temp Pulse Resp BP Pulse Ox 98.7 F 73 22 127/68 94 01/07/21 11:19 01/07/21 11:19 01/07/21 11:19 01/07/21 11:19 01/07/21 11:19 General appearance: Present: no acute distress, well-nourished - EENT Eyes: Present: PERRL, EOM intact ENT: hearing intact, clear oral mucosa, dentition normal - Neck Neck: Present: supple, normal ROM - Respiratory Respiratory effort: normal - Cardiovascular Rhythm: regular Heart Sounds: Present: S1 & S2 - Extremities Extremities: no ischemia, pulses intact, pulses symmetrical, No edema, normal temperature, normal color Peripheral Pulses: within normal limits - Abdominal General gastrointestinal: soft, non-tender, non-distended, normal bowel sounds - Integumentary Integumentary: Present: clear, warm, dry - Psychiatric Psychiatric: appropriate mood/affect, intact judgment & insight, memory intact, cooperative - Neurologic Neurologic: CNII-XII intact, moves all extremities - Allied Health Allied health notes reviewed: nursing HEART Score - HEART Score EKG: Non-specific Age: 45-65 Risk factors: > 3 risk factors or hx of atherosclerotic disease Troponin: Troponin T < 0.010 ng/mL (0.00-0.029) 01/07/21 14:18 Troponin: < normal limit - Critical Actions Critical Actions: 4-6 pts:12-16.6% risk of adverse cardiac event. Should be admitted Results - Labs CBC & Chem 7: 01/06/21 09:51 01/06/21 09:51 Labs: Laboratory Last Values WBC 8.6 K/mm3 (4.5-11.0) 01/06/21 09:51 RBC 4.21 M/mm3 (3.65-5.03) 01/06/21 09:51 Hgb 12.1 gm/dl (10.1-14.3) 01/06/21 09:51 Hct 34.8 % (30.3-42.9) 01/06/21 09:51 MCV 83 fl (79-97) 01/06/21 09:51 MCH 29 pg (28-32) 01/06/21 09:51 MCHC 35 % (30-34) H 01/06/21 09:51 RDW 16.8 % (13.2-15.2) H 01/06/21 09:51 Plt Count 244 K/mm3 (140-440) 01/06/21 09:51 Lymph % (Auto) 29.2 % (13.4-35.0) 01/06/21 09:51 [place] % (Auto) 8.1 % (0.0-7.3) H 01/06/21 09:51 Eos % (Auto) 0.3 % (0.0-4.3) 01/06/21 09:51 Baso % (Auto) 0.5 % (0.0-1.8) 01/06/21 09:51 Lymph # (Auto) 2.5 K/mm3 (1.2-5.4) 01/06/21 09:51 [place] # (Auto) 0.7 K/mm3 (0.0-0.8) 01/06/21 09:51 Eos # (Auto) 0.0 K/mm3 (0.0-0.4) 01/06/21 09:51 Baso # (Auto) 0.0 K/mm3 (0.0-0.1) 01/06/21 09:51 Seg Neutrophils % 61.9 % (40.0-70.0) 01/06/21 09:51 Seg Neutrophils # 5.3 K/mm3 (1.8-7.7) 01/06/21 09:51 PT 14.2 Sec. (12.2-14.9) 01/06/21 09:51 INR 1.05 (0.87-1.13) 01/06/21 09:51 APTT 29.3 Sec. (24.2-36.6) 01/06/21 09:51 D-Dimer 1439.13 ng/mlDDU (0-234) H 01/06/21 09:51 Sodium 141 mmol/L (137-145) 01/06/21 09:51 Potassium 4.1 mmol/L (3.6-5.0) 01/06/21 09:51 Chloride 103.1 mmol/L (98-107) 01/06/21 09:51 Carbon Dioxide 24 mmol/L (22-30) 01/06/21 09:51 Anion Gap 18 mmol/L 01/06/21 09:51 BUN 8 mg/dL (7-17) 01/06/21 09:51 Creatinine 1.1 mg/dL (0.6-1.2) 01/06/21 09:51 Estimated GFR > 60 ml/min 01/06/21 09:51 BUN/Creatinine Ratio 7 % 01/06/21 09:51 Glucose 106 mg/dL (65-100) H 01/06/21 09:51 Calcium 8.9 mg/dL (8.4-10.2) 01/06/21 09:51 Magnesium 1.70 mg/dL (1.7-2.3) 01/06/21 09:51 Total Bilirubin 0.40 mg/dL (0.1-1.2) 01/06/21 09:51 AST 18 units/L (5-40) 01/06/21 09:51 ALT 11 units/L (7-56) 01/06/21 09:51 Alkaline Phosphatase 78 units/L (35-129) 01/06/21 09:51 Total Creatine Kinase 145 units/L (30-135) H 01/06/21 09:51 Troponin T < 0.010 ng/mL (0.00-0.029) 01/07/21 14:18 NT-Pro-B Natriuret Pep 379.4 pg/mL (0-450) 01/06/21 09:51 Total Protein 8.0 g/dL (6.3-8.2) 01/06/21 09:51 Albumin 3.7 g/dL (3.9-5) L 01/06/21 09:51 Albumin/Globulin Ratio 0.9 % 01/06/21 09:51 TSH 2.090 mlU/mL (0.270-4.200) 01/06/21 09:51 HCG, Quant < 2 mIU/mL (0-4) 01/06/21 09:51 Coronavirus (PCR) Negative (Negative) 01/07/21 08:00 Nettles/IV: Voiding Method Toilet Active Medications - Current Medications Current Medications: Generic Name Dose Route Start Last Admin Trade Name Freq PRN Reason Stop Dose Admin Acetaminophen/Butalbital/Caffeine 1 tab 01/06/21 17:00 01/06/21 21:54 Butalb/Acetaminophen/Caffeine Tab PO 1 tab Q4H PRN Administration Headache Hydralazine HCl 10 mg 01/06/21 18:20 01/07/21 05:57 Hydralazine 20 Mg/1 Ml Inj IV 10 mg Q3H PRN Administration Blood Pressure Hydralazine HCl 50 mg 01/06/21 18:00 01/07/21 09:42 Hydralazine 25 Mg Tab PO 50 mg Q8H YUDELKA Administration Metoprolol Tartrate 50 mg 01/06/21 22:00 01/07/21 09:38 Metoprolol Tartrate 50 Mg Tab PO 50 mg BID YUDELKA Administration Nitroglycerin 0.4 mg 01/06/21 09:35 01/06/21 10:40 Nitroglycerin 0.4 Mg Tab Subl SL 0.4 mg .Q5MIN PRN Administration Chest Pain Tizanidine HCl 4 mg 01/06/21 17:00 Tizanidine Tab 4 Mg Tab PO Q6H PRN Muscle Spasm Verapamil HCl 240 mg 01/06/21 20:00 01/06/21 22:42 Verapamil Er 240 Mg Tab PO 240 mg Q24H YUDELKA Administration Zolpidem Tartrate 10 mg 01/06/21 21:08 01/06/21 21:55 Zolpidem 5 Mg Tab PO 10 mg QHS PRN Administration Sleep
[2021-01-07] MEDS: VERAPAMIL ER 240 MG TAB PO SCH (23:35)
[2021-01-08] MEDS: hydrALAZINE 25 MG TAB PO SCH ×3 (02:25→18:17)
[2021-01-08 06:17] LABS: Basophils % (Auto) 0.4 % (0.0-1.8); Eosinophils # (Auto) 0.1 K/mm3 (0.0-0.4); Eosinophils % (Auto) 0.8 % (0.0-4.3); Hematocrit 37.4 % (30.3-42.9); Hemoglobin 12.8 gm/dl (10.1-14.3); Lymphocytes # (Auto) 4.1 K/mm3 (1.2-5.4); Lymphocytes % (Auto) 37.4 % (13.4-35.0); Mean Corpuscular HGB Conc 34 % (30-34); Mean Corpuscular Volume 82 fl (79-97); Monocytes % (Auto) 8.7 % (0.0-7.3); Platelet Count 298 K/mm3 (140-440); Red Blood Count 4.53 M/mm3 (3.65-5.03); Red Cell Distribution Width 16.9 % (13.2-15.2)
[2021-01-08 06:53] LABS: Calcium 9.1 mg/dL (8.4-10.2)
[2021-01-08] MEDS ORDERED: LORazepam 2 MG/ML VIAL IV ONE (07:10)
[2021-01-08] MEDS ORDERED: REGADENOSON 0.4 MG/5 ML INJ IV ONE ×2 (09:22→09:24)
--- NOTE | 2021-01-08 10:09 | Electrocardiograph Report ---
[facility] Test Date: 2021-01-06 Test Time: 08:43:52 Pat Name: RADHA BROWN Department: Room: A392 Gender: F [employer]: MICHELLE : 1970 Requested By: JARED COLLINS Order Number: [id number] Reading MD: Octavio Brown Measurements Intervals [place] Rate: 78 P: 66 [place]: 127 QRS: 10 QRSD: 82 T: 95 QT: 386 QTc: 439 Interpretive Statements Sinus rhythm LAE, consider biatrial enlargement Anteroseptal infarct, old Nonspecific T abnormalities, lateral leads No previous ECG available for comparison Electronically Signed On 01-08-2021 10:09:16 EDT by Octavio Brown
[2021-01-08] MEDS: METOPROLOL TARTRATE 50 MG TAB PO SCH (10:47)
[2021-01-08] MEDS: BUTALB/ACETAMINOPHEN/CAFFEINE TAB PO PRN (10:48)
--- NOTE | 2021-01-08 14:00 | Discharge Summary ---
Providers - Providers Date of Admission: 01/06/21 14:25 Date of discharge: 01/08/21 Attending physician: WILMAR KINGSLEY MD Cardiology. Hospitalization Reason for admission: Hypertensive urgency Condition: Good Pertinent studies: Reviewed. Procedures: Stress test. Hospital course: The patient is a 50-year-old female with past medical history of hypertension and morbid obesity who presented after worsening symptoms of retrosternal chest pain not radiating to her back or left upper extremity. The patient admitted to having increased anxiety and atypical insomnia. Upon presentation to the ED the patient's blood pressure was elevated at 260/150, which required IV hydralazine and oral medications. Patient underwent stress test with cardiology (01/08/2021) that was found to be negative with EF 40%. Patient was counseled on how to manage stress including therapy, counseling, and/or the use of medications. Patient expressed understanding. Patient will be discharged home with family. Disposition: 01 HOME / SELF CARE / HOMELESS Final Discharge Diagnosis (Prints w/discharge instructions): Hypertensive urgency; anxiety attack Time spent for discharge: 50 min Core Measure Documentation - Palliative Care Palliative Care/ Comfort Measures: Not Applicable - Core Measures Any of the following diagnoses?: none - VTE Discharge Requirements Deep Vein Thrombosis/Pulmonary Embolism Present on Admission: No Has pt received <5 days of overlap therapy or INR<2.0: No Anticoagulant overlap therapy prescribed at discharge: No (Not applicable) Contraindication No Overlap Therapy order at DC: Not Indicated - Acute [place] Discharge Requirements Aspirin at discharge: No Reason for no aspirin on DC: Medical contraindication (Not applicable) CONCHIS/ARB for LVSD if EF <40%: Not Applicable Reason for no CONCHIS/ARB: Medical contraindication Beta marco at discharge: No (Not applicable) Reason for no beta marco on DC: Medical contraindication Statin for LDL = or >100 mg/dl on DC: Not Applicable (Not applicable) Reason for no statin on DC: Medical contraindication (Not applicable) - Heart Failure Discharge Requirements CONCHIS/ARB for LVSD if EF <40%: Not Applicable Reason for no CONCHIS/ARB: Medical contraindication Beta marco at discharge: No (Not applicable) Reason for no beta marco on DC: Medical contraindication (Not applicable) - Stroke Discharge Requirements Statin for LDL = or >70 mg/dl on DC: Not Applicable Reason for no statin on DC: Not Indicated Anticoag for atrial fib/atrial flutter: Not Applicable Reason for no anticoag for AF/F on DC: Not Indicated Antithrombotic for ischemic stroke: No Reason for no antithrombotic on DC: Not Indicated Exam - Constitutional Vitals: Temp Pulse Resp BP Pulse Ox 97.5 F L 76 18 151/94 97 01/08/21 11:39 01/08/21 11:39 01/08/21 11:39 01/08/21 11:39 01/08/21 11:39 General appearance: Present: no acute distress, well-nourished, obese - EENT Eyes: Present: PERRL, EOM intact ENT: hearing intact, clear oral mucosa, dentition normal - Neck Neck: Present: supple, normal ROM - Respiratory Respiratory effort: normal - Cardiovascular Rhythm: regular Heart Sounds: Present: S1 & S2 - Extremities Extremities: no ischemia, pulses intact, pulses symmetrical, No edema, normal temperature, normal color Peripheral Pulses: within normal limits - Abdominal General gastrointestinal: Present: soft, non-tender, non-distended, normal bowel sounds Female genitourinary: Present: deferred - Rectal Rectal Exam: deferred - Integumentary Integumentary: Present: clear, warm, dry - Musculoskeletal Musculoskeletal: strength equal bilaterally - Psychiatric Psychiatric: appropriate mood/affect, intact judgment & insight, memory intact, cooperative, other (Anxious) - Neurologic Neurologic: CNII-XII intact, moves all extremities - Allied Health Allied health notes reviewed: nursing Plan Activity: no restrictions Diet: low salt Health Concerns: Patient should return to the emergency room if they experience any of the following: Fevers, chills, uncontrollable nausea and vomiting, uncontrollable abdominal pain, chest pain/chest pressure, shortness of breath, weakness, or confusion. Assessment: Discharging home with family. Follow up with: LIZA PETERS MD [Staff Physician] - 14 Days (Patient wishing to obtain new PCP. Posthospitalization follow-up for hypertensive urgency and anxiety attack.) Prescriptions: Oxazepam 15 mg PO Q8HR PRN #30 capsule PRN Reason: Anxiety
--- NOTE | 2021-01-08 15:29 | Treadmill Report ---
DATE OF SERVICE: 01/08/2021 NUCLEAR PERFUSION SCAN REFERRING PHYSICIAN: Hospitalist service. PROTOCOL: The patient was assessed in postoperative state, given 10 mCi of the technetium at rest. The patient had rest imaging. The patient underwent Lexiscan stress test per standard protocol. At peak stress, the patient given 26 mCi technetium. Shortly thereafter, the patient had stress imaging. Raw imaging reveals mild GI artifact, no significant motion effect. SPECT imaging examined carefully in horizontal long axis, vertical long axis, short axis views. There was normal mitral uptake of radioisotope in all port segments. No evidence of significant fixed or reversible perfusion defect suggestive of prior infarct or ischemia. Gated wall motion reveals mild global left ventricular hypokinesis. Calculated ejection fraction of 40%. No TID. CONCLUSIONS: 1. Normal myocardial perfusion scan without evidence of active ischemia or prior infarction. 2. Mild global left ventricular hypokinesis. Calculated ejection fraction of 40%, without evidence of TID Suggest clinical correlation. TID: [id number] RECEIPT: [id number] SBM/NIS
[2021-01-08 18:17] VITALS: BP 126/68
== END 2021-01-08 19:30 | disposition home or self-care (01) ==
LOC: ED 08:11 → 3A 14:25
PROVIDERS: ADMIT Internal Medicine; ATTEND Student in an Organized Health Care Education/Training Program
DX: I16.0 Hypertensive urgency (principal); Z20.822 Contact with and (suspected) exposure to COVID-19; I16.1 Hypertensive emergency; F41.9 Anxiety disorder, unspecified; R07.89 Other chest pain; I51.7 Cardiomegaly; I10 Essential (primary) hypertension; G47.33 Obstructive sleep apnea (adult) (pediatric); E66.01 Morbid (severe) obesity due to excess calories; Z28.21 Immunization not carried out because of patient refusal; Z68.42 Body mass index [BMI] 45.0-49.9, adult; Z79.899 Other long term (current) drug therapy
CPT/HCPCS: 36415; 71045; 71275; 78452; 80048; 80053; 82550; 83735; 83880; 84100; 84443; 84484; 84702; 85025; 85379; 85610; 85730; 93005; 93017; 96374; 96375; 96376; 99285; A9502; G0378; J0360; J2060; J2250; J2785; Q9967; U0003